=== PATIENT | female | born 1965 | race American Indian/Alaskan Native ===

== ENCOUNTER 2021-01-04 11:00 | Emergency (ER) | payer OTHER ==
--- NOTE | 2021-01-04 14:11 | Emergency Department Report ---
ED Female HPI - General Chief complaint: Vaginal Bleeding Stated complaint: HEAVY VAGINAL BLEEDING FOR SEVERAL WEEKS Time Seen by Provider: 01/04/21 14:09 Source: patient Mode of arrival: Ambulatory Limitations: No Limitations - History of Present Illness Initial comments: 55-year-old female presents to the ER today with complaints of abnormal vaginal bleeding. Patient states that her symptoms started 4 weeks ago. Patient states that she has not had a menstrual cycle since April 2020. She states that she thought she was going through menopause and did not expect to have any more bleeding. She states that the bleeding that started 4 weeks ago started off white but has gotten heavier. She states that it has been alternating between heavy and light and on her heavy days she has been changing at least 7-8 pads per day. She reports also clots and some mild abdominal discomfort. Patient states she is not any blood thinners. She denies any UTI symptoms. She denies any fever, chills or vomiting. Patient states that she has not seen an [facility] since the bleeding started 4 weeks ago but she did go to an urgent care today and it was recommended that she come to the ER immediately. She denies any symptoms like dizziness, chest pain, palpitations, shortness of breath, near syncope or syncopal episodes. MD Complaint: vaginal bleeding -: Gradual, week(s) (4) - Related Data Home Medications Medication Instructions Recorded Confirmed Last Taken Budesoni/Formotero 160-4.5(Nf) 10.2 gm INHALATION Q12H 07/21/13 06/26/14 06/24/14 [Symbicort 160-4.5] Previous Rx's Medication Instructions Recorded Last Taken Type ALBUTEROL NEB's [Proventil 0.083% 2.5 mg IH Q4H PRN #25 neb 11/12/14 Unknown Rx NEBS] Albuterol Sulfate [Ventolin HFA] 2 puff IH Q4H PRN #1 hfa.aer.ad 11/12/14 Unknown Rx Budesoni/Formotero 160-4.5(Nf) 2 puff IH BID #2 inha 11/12/14 Unknown Rx [Symbicort 160-4.5 (Nf)] Cetirizine HCl [ZyrTEC] 10 mg PO QHS #30 capsule 11/12/14 Unknown Rx Ipratropium [Atrovent NEB] 0.5 mg IH Q6HRT PRN #25 neb 11/12/14 Unknown Rx predniSONE [Deltasone] 20 mg PO TID #15 tab 11/12/14 Unknown Rx Ferrous Sulfate [Feosol 325 MG tab] 325 mg PO DAILY #30 tablet 01/04/21 Unknown Rx Fluconazole [Diflucan TAB] 200 mg PO QDAY #2 tablet 01/04/21 Unknown Rx Sulfamethoxazole/Trimethoprim 1 each PO BID #14 tablet 01/04/21 Unknown Rx [Bactrim DS TAB] Allergies Allergy/AdvReac Type Severity Reaction Status Date / Time No Known Allergies Allergy Verified 05/28/14 19:45 ED Review of Systems ROS: Stated complaint: HEAVY VAGINAL BLEEDING FOR SEVERAL WEEKS Other details as noted in HPI Comment: All other systems reviewed and negative Constitutional: denies: chills, fever Eyes: denies: eye pain, eye discharge, vision change ENT: denies: ear pain, throat pain, dental pain, hearing loss, epistaxis, congestion Respiratory: denies: cough, shortness of breath, SOB with exertion, SOB at rest, wheezing Cardiovascular: denies: chest pain, palpitations, dyspnea on exertion, edema, syncope, paroxysmal nocturnal dyspnea Endocrine: no symptoms reported Gastrointestinal: abdominal pain. denies: nausea, vomiting, diarrhea, constipation, hematemesis, melena, hematochezia Genitourinary: abnormal menses. denies: urgency, dysuria, frequency, hematuria, discharge, dyspareunia Skin: denies: rash, lesions, change in color, change in hair/nails, pruritus Neurological: denies: headache, weakness, numbness, paresthesias, confusion, abnormal gait, vertigo Psychiatric: denies: anxiety, depression, auditory hallucinations, visual hallucinations, homicidal thoughts, suicidal thoughts Hematological/Lymphatic: denies: easy bleeding, easy bruising ED Past Medical Hx - Past Medical History Previous Medical History?: Yes Hx Hypertension: No Hx Heart Attack/AMI: No Hx Congestive Heart Failure: No Hx Diabetes: No Hx Deep Vein Thrombosis: No Hx Pulmonary Embolism: No Hx Liver Disease: No Hx Renal Disease: No Hx Sickle Cell Disease: No Hx Arthritis: No Hx Seizures: No Hx Kidney Stones: No Hx Asthma: Yes Hx COPD: No Hx Tuberculosis: No Hx Dementia: No Hx HIV: No Additional medical history: anemia - Surgical History Past Surgical History?: Yes Hx Coronary Stent: No Hx Pacemaker: No Hx Internal Defibrillator: No Additional Surgical History: Ectopic - Social History Smoking Status: Never Smoker Substance Use Type: None - Medications Home Medications: Home Medications Medication Instructions Recorded Confirmed Last Taken Type Budesoni/Formotero 160-4.5(Nf) 10.2 gm INHALATION Q12H 07/21/13 06/26/14 06/24/14 History [Symbicort 160-4.5] ALBUTEROL NEB's [Proventil 0.083% 2.5 mg IH Q4H PRN #25 neb 11/12/14 Unknown Rx NEBS] Albuterol Sulfate [Ventolin HFA] 2 puff IH Q4H PRN #1 hfa.aer.ad 11/12/14 Unknown Rx Budesoni/Formotero 160-4.5(Nf) 2 puff IH BID #2 inha 11/12/14 Unknown Rx [Symbicort 160-4.5 (Nf)] Cetirizine HCl [ZyrTEC] 10 mg PO QHS #30 capsule 11/12/14 Unknown Rx Ipratropium [Atrovent NEB] 0.5 mg IH Q6HRT PRN #25 neb 11/12/14 Unknown Rx predniSONE [Deltasone] 20 mg PO TID #15 tab 11/12/14 Unknown Rx Ferrous Sulfate [Feosol 325 MG tab] 325 mg PO DAILY #30 tablet 01/04/21 Unknown Rx Fluconazole [Diflucan TAB] 200 mg PO QDAY #2 tablet 01/04/21 Unknown Rx Sulfamethoxazole/Trimethoprim 1 each PO BID #14 tablet 01/04/21 Unknown Rx [Bactrim DS TAB] ED Physical Exam - General Limitations: No Limitations General appearance: alert, in no apparent distress - Head Head exam: Present: atraumatic, normocephalic, normal inspection - Eye Eye exam: Present: normal appearance, PERRL, EOMI Pupils: Present: normal accommodation - ENT ENT exam: Present: normal exam, mucous membranes moist - Neck Neck exam: Present: normal inspection, full ROM - Respiratory Respiratory exam: Present: normal lung sounds bilaterally. Absent: respiratory distress, wheezes, rales, rhonchi - Cardiovascular Cardiovascular Exam: Present: regular rate, normal rhythm, normal heart sounds - GI/Abdominal GI/Abdominal exam: Present: soft. Absent: distended, tenderness, guarding, re bound - Neurological Exam Neurological exam: Present: alert, oriented X3, CN II-XII intact, normal gait - Psychiatric Psychiatric exam: Present: normal affect, normal mood - Skin Skin exam: Present: intact ED Course Vital Signs 01/04/21 01/04/21 01/04/21 11:08 18:30 18:31 Temperature 98.7 F Pulse Rate 72 80 Respiratory 18 18 Rate Blood Pressure 143/70 Blood Pressure 138/76 [Right] O2 Sat by Pulse 100 98 98 Oximetry ED Medical Decision Making - Lab Data Result diagrams: 01/04/21 14:08 01/04/21 14:08 - Radiology Data Radiology results: report reviewed Patient: LUCI GARCIA MR#: [id number] 1 : 1965 Acct:[id number] Age/Sex: 55 / F ADM Date: 01/04/21 Loc: ED Attending Dr: Ordering Physician: EMERSON ZAZUETA Date of Service: 01/04/21 Procedure(s): US transvaginal Accession Number(s): [id number] cc: EMERSON ZAZUETA US transvaginal INDICATION / CLINICAL INFORMATION: abnl vag bleeding x 1 mth. COMPARISON: None available. FINDINGS: Transvaginal imaging was performed. Uterus measures 9.6 cm in length. In the lower uterine segment there is a 3 cm hypoechoic focus which is most likely a uterine fibroid. Endometrial echo complex measures 12 mm. Right ovary is not visualized. There is an anechoic 2.3 cm left ovarian lesion consistent with cyst. There is also a 2.6 cm left ovarian lesion which is hypoechoic. No free fluid is identified. IMPRESSION: 1. Endometrial echo complex measures 12 mm which is abnormal in a postmenopausal patient, correlate clinically. 2. 2.6 cm hypoechoic left ovarian lesion may be a hemorrhagic cyst. There is also a simple left ovarian cyst measuring 2.3 cm. 3. Probable lower uterine segment 3 cm fibroid. Signer Name: Mynor Mosher MD Signed: 01/04/2021 3:27 PM Workstation Name: [id number] Transcribed By: MELIDA Dictated By: Mynor Mosher MD Electronically Authenticated By: Mynor Mosher MD Signed Date/Time: 01/04/211526 DD/ 1525 TD/TT: - Medical Decision Making All labs reviewed -CBC shows that patient is anemic with a hemoglobin of 7.8 and a hematocrit of 24.8, her white blood cell count was normal and platelet count was normal. Her CMP was unremarkable. Urinalysis is concerning for UTI, urine culture pending and hCG negative. Pelvic ultrasound shows - 1. Endometrial echo complex measures 12 mm which is abnormal in a postmenopausal patient, correlate clinically. 2. 2.6 cm hypoechoic left ovarian lesion may be a hemorrhagic cyst. There is also a simple left ovarian cyst measuring 2.3 cm. 3. Probable lower uterine segment 3 cm fibroid. Patient currently resting comfortably. She is not in any acute distress. She is neurologically intact with a normal gait in the ER. Her vital signs are stable. She is not toxic or ill-appearing and appears hydrated. Discussed lab results with patient and also ultrasound results with patient. She will be started on iron supplements and be treated for her UTI with Bactrim but informed her that it is important that she follows up with [facility] for a possible biopsy and further evaluation of her abnormal bleeding. Patient does not currently have an [facility] and therefore 1 will be provided to her on discharge. Patient expressed understanding of instructions and agree with plan. Patient was stable at time of discharge. Critical care attestation.: If time is entered above; I have spent that time in minutes in the direct care of this critically ill patient, excluding procedure time. ED Disposition Clinical Impression: Dysfunctional uterine bleeding, Uterine fibroid, Anemia, UTI (urinary tract infection), Yeast vaginitis Disposition: TO HOME OR SELFCARE Is pt being admited?: No Does the pt Need Aspirin: No Condition: Stable Instructions: Vaginal Yeast Infection, Adult, Uterine Fibroids, [id number], Urinary Tract Infection, Adult, Dysfunctional Uterine Bleeding Additional Instructions: Take the Bactrim as prescribed to help your UTI. Take the Diflucan as pres cribed. Also start taking the Fioricet daily. It is important that you follow- up with one of the [facility] clinics listed on your discharge instructions for further evaluation of your abnormal bleeding. Return to the ER if your symptoms worsens in any way. Prescriptions: Sulfamethoxazole/Trimethoprim [Bactrim DS TAB] 1 each PO BID #14 tablet Fluconazole [Diflucan TAB] 200 mg PO QDAY #2 tablet Ferrous Sulfate [Feosol 325 MG tab] 325 mg PO DAILY #30 tablet Referrals: [facility] [Provider Group] - 3-5 Days [facility] [Provider Group] - 3-5 Days Forms: Work/School Release Form(ED) Time of Disposition: 18:14
[2021-01-04 14:41] LABS: Basophils % (Auto) 0.5 % (0.0-1.8); Eosinophils # (Auto) 0.1 K/mm3 (0.0-0.4); Eosinophils % (Auto) 1.3 % (0.0-4.3); Hematocrit 24.8 % (30.3-42.9); Hemoglobin 7.8 gm/dl (10.1-14.3); Lymphocytes # (Auto) 1.6 K/mm3 (1.2-5.4); Lymphocytes % (Auto) 26.5 % (13.4-35.0); Mean Corpuscular HGB Conc 31 % (30-34); Mean Corpuscular Volume 73 fl (79-97); Monocytes # (Auto) 0.8 K/mm3 (0.0-0.8); Platelet Count 435 K/mm3 (140-440); Red Blood Count 3.41 M/mm3 (3.65-5.03); Red Cell Distribution Width 17.2 % (13.2-15.2)
[2021-01-04 15:05] LABS: Alanine Aminotransferase 8 units/L (7-56); Albumin 3.6 g/dL (3.9-5); Blood Urea Nitrogen 9 mg/dL (7-17); Calcium 8.6 mg/dL (8.4-10.2); Hemolysis Index 2
[2021-01-04 15:14] LABS: BUN/Creatinine Ratio 15
--- NOTE | 2021-01-04 15:31 | Ultrasound Report ---
US transvaginal INDICATION / CLINICAL INFORMATION: abnl vag bleeding x 1 mth. COMPARISON: None available. FINDINGS: Transvaginal imaging was performed. Uterus measures 9.6 cm in length. In the lower uterine segment there is a 3 cm hypoechoic focus which is most likely a uterine fibroid. Endometrial echo complex measures 12 mm. Right ovary is not visualized. There is an anechoic 2.3 cm left ovarian lesion consistent with cyst. There is also a 2.6 cm left ova samanta lesion which is hypoechoic. No free fluid is identified. IMPRESSION: 1. Endometrial echo complex measures 12 mm which is abnormal in a postmenopausal patient, correlate c linically. 2. 2.6 cm hypoechoic left ovarian lesion may be a hemorrhagic cyst. There is also a simple left ovari an cyst measuring 2.3 cm. 3. Probable lower uterine segment 3 cm fibroid. Signer Name: Mynor Mosher MD Signed: 01/04/2021 3:27 PM Workstation Name: [id number]
[2021-01-04 17:25] LABS: Bilirubin,Urine NEG (Negative); Blood,Urine LG (Negative); Color,Urine Red (Yellow); Mucus,Urine 3+ /HPF; Urobilinogen,Urine < 2.0 mg/dL (<2.0)
[2021-01-04 17:32] LABS: Protein,Urine >500 mg/dL (Negative); RBC,Urine > 182.0 /HPF (0.0-6.0); WBC,Urine > 182.0 /HPF (0.0-6.0)
[2021-01-04 17:34] LABS: HCG Qualitative,Urine Negative (Negative)
[2021-01-04 18:32] VITALS: BP 138/76
== END 2021-01-04 18:32 | disposition home or self-care (01) ==
LOC: ED 11:00
DX: N93.8 Other specified abnormal uterine and vaginal bleeding (principal); D25.9 Leiomyoma of uterus, unspecified; N39.0 Urinary tract infection, site not specified; D64.9 Anemia, unspecified; B37.3 Candidiasis of vulva and vagina; J45.909 Unspecified asthma, uncomplicated; Z98.890 Other specified postprocedural states
CPT/HCPCS: 36415; 76830; 80053; 81001; 81025; 85025; 87086; 99284